=== PATIENT | female | born 1975 | race Caucasian/White ===

== ENCOUNTER → 2016-10-02 | Outpatient (CLI) | payer OTHER ==
[~2016-10-02] MED LIST: LEVAQUIN 750MG750 M1 PO; NASONEX SPRAY17 GM NS; SINGULAIR 110 MG/TAB PO
== END ==
LOC: MC.RAD 08:52
DX: Z12.31 Encounter for screening mammogram for malignant neoplasm of breast (principal)

== ENCOUNTER → 2017-10-21 | Outpatient (CLI) | payer OTHER | LOC: MC.RAD 08:08 | DX: Z12.31 Encounter for screening mammogram for malignant neoplasm of breast (principal) ==

== ENCOUNTER → 2018-10-29 | Outpatient (CLI) | payer OTHER | LOC: MC.RAD 09:54 | DX: Z12.31 Encounter for screening mammogram for malignant neoplasm of breast (principal); N64.89 Other specified disorders of breast ==

== ENCOUNTER → 2018-11-03 | Outpatient (CLI) | payer OTHER | LOC: MC.RAD 12:48 | DX: N63.10 Unspecified lump in the right breast, unspecified quadrant (principal); Z98.82 Breast implant status ==

== ENCOUNTER 2018-11-14 08:02 | Day surgery (SDC) | payer OTHER ==
[~2018-11-14] VITALS: Ht 167.6 cm; Wt 59.7 kg
[2018-11-14 08:38] VITALS: BP 125/64; PULSE 61; TEMP 97.4
[2018-11-14] MEDS ORDERED: ARNUITY IH (08:47)
[2018-11-14] MEDS ORDERED: CELEXA 20MG20 MG/TAB PO (08:47)
[2018-11-14] MEDS ORDERED: AEROSPAN80 MCG/Act IH (08:48)
[2018-11-14] MEDS ORDERED: MULTI VITAMINS1 TAB PO (08:49)
--- NOTE | 2018-11-14 08:50 | NUR ---
TO RM AT 0810- CALL LIGHT IN REACH AT BEDSIDE.
--- NOTE | 2018-11-14 09:15 | NUR ---
TAKEN TO RADIOLOGY
[2018-11-14 12:21] VITALS: BP 107/64; PULSE 86; TEMP 97.3
--- NOTE | 2018-11-14 12:21 | NUR ---
TO RM 6 PER CART FROM [facility].R. DROWSY, BUT ORIENTED X3. TALKING TO STAFF. PATIENT REQUESTED TO REST "SOME" BEFORE FAMILY COMES BACK. 02 SAT 99% ON ROOM DRESSING CLEAN DRY INTACT. RECEIVED WATER AND TOOK COUPLE SIPS.
[2018-11-14] MEDS ORDERED: NORCO 325 MG-51 TAB PO (12:22)
[2018-11-14 12:35] VITALS: BP 106/60; PULSE 81
--- NOTE | 2018-11-14 12:35 | NUR ---
DRESSING CD&I, DENIES PAIN OR DISCOMFORT. FAMILY AT BEDSIDE.
[2018-11-14 12:50] VITALS: BP 115/66; PULSE 68
--- NOTE | 2018-11-14 12:50 | NUR ---
RECEIVED NARAO- TOOK A FEW BITES
[2018-11-14 13:05] VITALS: BP 110/60; PULSE 66
--- NOTE | 2018-11-14 13:05 | NUR ---
RECEIVED 2ND CUP OF WATER.
--- NOTE | 2018-11-14 13:10 | NUR ---
PATIENT STATED " I AM FEELING PRETTY GOOD, COMPARED TO THE LAST 2 TIMES." UP AMBULATED TO BATHROOM AND TOLERATED WELL TO BATHROOM. UPON RETURNING TO , PATIENT PALE AND STATED SHE NEEDED TO LAY BACK DOWN. LAYED BACK DOWN AND COVERED UP, REFUSED A NEW WARM BLANKET. COLOR SLIGHTLY PALE
--- NOTE | 2018-11-14 13:20 | NUR ---
ATE THE REST OF HER JELLO RECEIVED DISCHARGE INSTRUCTIONS AND VERBALIZED UNSTANDING WHILE SHE WAS RESTING. PATIENT WANTED TO REST A LITTLE LONGER.
--- NOTE | 2018-11-14 14:00 | NUR ---
STATED SHE WAS FEELING BETTER. DISCONTINUED IV AND INT- CATHETER INTACT COVERED WITH COTTON BALL AND COBAN
--- NOTE | 2018-11-14 14:15 | NUR ---
DISCHARGED PER WC BY NURSING STAFF TO PRIVATE CAR IN CARE OF - YESSI.
== END 2018-11-14 14:40 | disposition home or self-care (01) ==
LOC: SDCO 08:02
DX: D05.01 Lobular carcinoma in situ of right breast (principal); J45.909 Unspecified asthma, uncomplicated; Z80.0 Family history of malignant neoplasm of digestive organs; Z80.52 Family history of malignant neoplasm of bladder; Z82.49 Family history of ischemic heart disease and other diseases of the circulatory system; Z83.3 Family history of diabetes mellitus; Z79.899 Other long term (current) drug therapy
CPT/HCPCS: J0690; J1885; J2250; J2405; J2704; J3010; J7120

== ENCOUNTER → 2019-10-05 | Outpatient (CLI) | payer OTHER ==
[~2019-10-05] MED LIST changes: +AEROSPAN80 MCG/Act IH; +ARNUITY IH; +CELEXA 20MG20 MG/TAB PO; +MULTI VITAMINS1 TAB PO; +NORCO 325 MG-51 TAB PO
== END ==
LOC: MC.RAD 07:15
DX: Z12.31 Encounter for screening mammogram for malignant neoplasm of breast (principal); Z98.890 Other specified postprocedural states; Z98.82 Breast implant status

== ENCOUNTER → 2019-10-07 | Outpatient (CLI) | payer OTHER | LOC: MC.RAD 07:25 | DX: N63.20 Unspecified lump in the left breast, unspecified quadrant (principal) ==

== ENCOUNTER → 2020-04-07 | Outpatient (CLI) | payer OTHER | LOC: MC.RAD 10:18 | DX: N64.89 Other specified disorders of breast (principal) ==

== ENCOUNTER → 2020-11-22 | Outpatient (CLI) | payer OTHER | LOC: MC.RAD 07:57 | DX: R92.8 Other abnormal and inconclusive findings on diagnostic imaging of breast (principal); Z98.890 Other specified postprocedural states ==

== ENCOUNTER → 2022-01-05 | Outpatient (CLI) | payer OTHER | LOC: MC.RAD 06:51 | DX: Z12.31 Encounter for screening mammogram for malignant neoplasm of breast (principal) ==

== ENCOUNTER → 2024-01-23 | Outpatient (CLI) | payer BC | LOC: MC.RAD 07:20 | DX: Z12.31 Encounter for screening mammogram for malignant neoplasm of breast (principal) ==